=== PATIENT | male | born 1955 | race Hispanic/Latino ===

== ENCOUNTER 2021-05-18 14:34 | Emergency (ER) | payer OTHER ==
[~2021-05-18] VITALS: Ht 165.1 cm; Wt 72.6 kg
[2021-05-18 15:31] LABS: BASOPHILS % 0.4 % (0.0-1.0); EOSINOPHILS # (AUTO) 0.1 (0.0-0.4); EOSINOPHILS % 1.2 % (0.0-6.0); HEMATOCRIT 38.8 % (38.2-49.6); HEMOGLOBIN 13.7 g/dL (14.0-18.0); LYMPHOCYTES # (AUTO) 1.3 (1.0-3.2); MEAN CORPUSCULAR HEMOGLOBIN 32.5 pg (28-32); MEAN CORPUSCULAR HGB CONC 35.3 g/dL (31-35); MEAN CORPUSCULAR VOLUME 91.9 fL (81-99); MONOCYTES # (AUTO) 0.8 (0.2-0.8); MONOCYTES % 7.9 % (4.4-11.3); NEUTROPHILS # (AUTO) 8.2 (2.1-6.9); NEUTROPHILS % 78.1 % (38.7-80.0); PLATELET COUNT 280 x10e3/uL (140-360); RED BLOOD COUNT 4.22 x10e6/uL (4.3-5.7); RED CELL DISTRIBUTION WIDTH 11.9 % (11.7-14.4)
[2021-05-18 15:49] LABS: ALBUMIN 4.1 g/dL (3.5-5.0); ALBUMIN/GLOBULIN RATIO 1.1 (0.8-2.0); ANION GAP 17.1 mmol/L (8-16); CALCIUM 8.3 mg/dL (8.4-10.2); CREATININE, SERUM 0.72 mg/dL (0.72-1.25); POTASSIUM 4.1 mmol/L (3.5-5.1)
[2021-05-18] MEDS ORDERED: SODIUM CHLORIDE 0.9% 1000ML 1,000 ML IV SCH (16:15)
[2021-05-18] MEDS ORDERED: ACETAMINOPHEN 325 MG TAB PO ONE (18:30)
== END 2021-05-18 19:20 | disposition home or self-care (01) ==
LOC: ER 17:54
DX: R07.9 Chest pain, unspecified (principal); F14.10 Cocaine abuse, uncomplicated; I25.10 Atherosclerotic heart disease of native coronary artery without angina pectoris; M54.9 Dorsalgia, unspecified; G89.29 Other chronic pain; I25.2 Old myocardial infarction; F17.210 Nicotine dependence, cigarettes, uncomplicated
CPT/HCPCS: 36415; 71045; 80053; 84484; 85025; 93005; 99284